=== PATIENT | female | born 1995 | race Caucasian/White ===

== ENCOUNTER 2017-08-29 17:12 | Emergency (ER) | payer BC, OTHER ==
[~2017-08-29] VITALS: Ht 160 cm; Wt 113.5 kg
[~2017-08-29 17:12] MED LIST: SULF800T23 PO
[2017-08-29 17:19] VITALS: TEMP 36.9; Ht 160 cm; Wt 113.5 kg
[2017-08-29] MEDS ORDERED: BCTROWC TOP (18:14)
[2017-08-29] MEDS ORDERED: IMT50 PO (18:14)
[2017-08-29] MEDS ORDERED: AMIT10TA6 PO (18:14)
[2017-08-29] MEDS ORDERED: CEFTRIAXONE SOD INJ 1 GM ADDVIAL IV STA (18:26)
[2017-08-29 18:54] LABS: BASO % 0.5 %; BASO ABS # 0.06 K/uL (0-0.2); COMPLETE YES; EOS % 0.9 %; IG% 0.4 %; LYMPH % 22.8 %; LYMPH ABS # 2.57 K/uL (1.2-3.4); MEAN CELL VOLUME 79.5 fL (80-100); MEAN CORPUSCULAR HEMOGLOBIN 24.7 pg (25-34); MEAN PLATELET VOLUME 9.4 fL (7.4-10.4); MONO % 6.8 %; NEUT % 68.6 %; PLATELET COUNT 386 K/uL (130-400); RED BLOOD COUNT 5.03 M/uL (4.2-5.4); WHITE BLOOD COUNT 11.25 K/uL (4.8-10.8)
[2017-08-29 19:14] VITALS: BP 127/81; PULSE 90; O2SAT 98
[2017-08-29 19:14] LABS: BUN/CREATININE RATIO 17.1 (10-20); CREATININE 0.96 mg/dl (0.60-1.20); POTASSIUM 3.6 mmol/L (3.5-5.1)
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
[2017-08-29] MEDS ORDERED: SULF800T23 PO (20:16)
[2017-08-29] MEDS ORDERED: CEPH500C PO (20:16)
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
[2017-08-29] MEDS ORDERED: SEPTRA DS HOME PACK 1 EA VIAL PO ONE (20:30)
[2017-08-29] MEDS ORDERED: CEPHALEXIN 500MG HOME PACK 1 EA BTL PO ONE (20:30)
--- NOTE | 2017-08-31 14:01 | Pharmacy Progress Note ---
ED Pharmacist Culture FollowUp Date of Service: Aug 31, 2017. Patient with 1/4 positive blood culture per lab. Discussed with provider Sabino Ku and felt most likely to be a contaminate. It is also noted that patient had coag neg staph growing from wound culture. It was decided to inform patient of results and instruct her to follow up with her [facility] surgeon. If the patient is feeling significantly worse or displays any septic signs, then will instruct her to return to the ED. Attempted to call patient, but was unsuccessful. Left voicemail to return call.
== END 2017-08-29 20:40 | disposition home or self-care (01) ==
LOC: C.EDB 17:13 → C.EDD 20:40
DX: L03.114 Cellulitis of left upper limb (principal); Z82.49 Family history of ischemic heart disease and other diseases of the circulatory system; Z80.9 Family history of malignant neoplasm, unspecified; Z83.3 Family history of diabetes mellitus; Z79.899 Other long term (current) drug therapy

== ENCOUNTER 2018-01-23 08:26 | Emergency (ER) | payer BC ==
[~2018-01-23] VITALS: Ht 160 cm; Wt 111.2 kg
[~2018-01-23 08:26] MED LIST changes: +AMIT10TA6 PO; +BCTROWC TOP; +IMT50 PO; -SULF800T23 PO
[2018-01-23 08:30] VITALS: BP 152/76; PULSE 94; TEMP 36.8; Ht 160 cm; Wt 111.2 kg
[2018-01-23 08:33] VITALS: O2SAT 100
[2018-01-23] MEDS ORDERED: IBUPROFEN 600 MG TAB PO STA (08:54)
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
== END 2018-01-23 09:13 | disposition home or self-care (01) ==
LOC: C.EDB 08:28 → C.EDA 09:13
DX: J06.9 Acute upper respiratory infection, unspecified (principal); Z90.89 Acquired absence of other organs